=== PATIENT | female | born 1985 | race Two or more races ===

== ENCOUNTER 2017-09-25 11:25 | Emergency (ER) | payer SELFPAY ==
[2017-09-25 11:45] VITALS: BP 120/65
[2017-09-25] MEDS ORDERED: MORPHINE SULFATE 10 MG/ML VIAL. IM ONE (12:00)
[2017-09-25] MEDS ORDERED: KETOROLAC 60 MG/2 ML INJ. IM ONE (12:00)
--- NOTE | 2017-09-25 12:12 | PHYS DOC ---
Past Medical History Past Medical History: No Pertinent History Past Surgical History: No Surgical History Alcohol Use: Rarely Drug Use: None Adult General Chief Complaint Chief Complaint: ELBOW PROBLEM HPI HPI Patient is a 31 year old female who presents complaining of left elbow pain that began 3 days ago after she fell. Patient states she was seen at [facility] and they did x-rays and told her she has left elbow fracture. She states she was given an orthopedic doctor as well as pain medicine. She states she called the orthopedic doctor yesterday and was not able to talk to somebody in the office. She states she has continued to have pain though she is not taking her pain medicines. She has a bottle of hydrocodone and ibuprofen. Review of Systems Review of Systems Constitutional: Denies fever or chills [] Musculoskeletal: Left elbow pain Integument: Denies rash or skin lesions [] Neurologic: Denies headache, focal weakness or sensory changes [] All other systems were reviewed and found to be within normal limits, except as documented in this note. Current Medications Current Medications Current Medications Medications (Trade) Dose Ordered Sig/Paula Start Time Stop Time Status Last Admin Dose Admin Ketorolac Tromethamine (Toradol Im) 60 mg 1X ONCE 09/25/17 12:00 09/25/17 12:01 DC 09/25/17 12:05 60 MG Morphine Sulfate 5 mg 1X ONCE 09/25/17 12:00 09/25/17 12:01 DC 09/25/17 12:04 5 MG Allergies Allergies Allergies Coded Allergies Type Severity Reaction Last Updated Verified No Known Drug Allergies 09/25/17 No Physical Exam Physical Exam Constitutional: Well developed, well nourished, no acute distress, non-toxic appearance. [] Skin: Warm, dry, no erythema, no rash. [] Back: No tenderness, no CVA tenderness. [] Extremities: Left upper extremity is in a posterior long arm splint and sling, neurovascular exam is intact to the left fingers. Full range of motion to the left fingers. Cap refill less than 2 seconds the left fingers. Neurologic: Alert and oriented X 3, normal motor function, normal sensory function, no focal deficits noted. [] Psychologic: Affect normal, judgement normal, mood normal. [] Current Patient Data Vital Signs Vital Signs Date Time Temp Pulse Resp B/P (MAP) Pulse Ox O2 Delivery O2 Flow Rate FiO2 09/25/17 11:45 98.3 77 18 99 Room Air 98.3 EKG EKG [] Radiology/Procedures Radiology/Procedures [] Course & Med Decision Making Course & Med Decision Making Pertinent Labs and Imaging studies reviewed. (See chart for details) Patient is in the ED with left elbow pain for the last 4 days. She was seen at [facility] and was diagnosed with elbow fracture. She has pain medicine and is not taking it. Instructed patient to start taking the hydrocodone and ibuprofen. Instructed her to follow-up with an orthopedic doctor. We did provide her name and contact information. Ice elevation of the extremity are also recommended. Dragon Disclaimer Dragon Disclaimer This electronic medical record was generated, in whole or in part, using a voice recognition dictation system. Departure Departure Impression: Primary Impression: Left elbow pain Additional Impression: Elbow fracture, left Disposition: 01 HOME, SELF-CARE Condition: STABLE Referrals: MATT GODOY MD call his office on Wednesday and set up a follow up appointment Patient Instructions: Elbow Fracture, Simple Additional Instructions: You were seen with ongoing left elbow pain from an elbow fracture four days ago. Please take the hydrocodone and ibuprofen as prescribed. Ice and elevate the extremity. Follow up with the provided orthopedic doctor by calling his office on Wednesday morning at 9:00. Problem Qualifiers Additional Impression: Elbow fracture, left Encounter type: subsequent encounter Fracture type: closed Fracture healing : with routine healing Qualified Codes: S42.402D - Unspecified fracture of lower end of left humerus, subsequent encounter for fracture with routine healing RYDER BARROS APRN Sep 25, 2017 12:12
== END 2017-09-25 12:30 | disposition home or self-care (01) ==
LOC: ER 12:07
DX: S42.402A Unspecified fracture of lower end of left humerus, initial encounter for closed fracture (principal); W18.39XA Other fall on same level, initial encounter; Y93.89 Activity, other specified; Y92.89 Other specified places as the place of occurrence of the external cause; Y99.8 Other external cause status
CPT/HCPCS: 96372; 99284; J1885; J2270